=== PATIENT | female | born 1955 | race Caucasian/White ===

== ENCOUNTER → 2019-08-13 13:20 | Outpatient (BNVA) | payer MEDICARE, SELFPAY | PROVIDERS: Family Provider Family Medicine; PCP Family Medicine; Visit Provider Family Medicine | DX: E78.5 Hyperlipidemia, unspecified (principal); N18.3 Chronic kidney disease, stage 3 (moderate); R73.03 Prediabetes | CPT/HCPCS: 36415; 80053; 80061; 85025 ==

== ENCOUNTER → 2019-10-08 10:58 | Outpatient (BNVA) | payer MEDICARE, SELFPAY | PROVIDERS: Family Provider Family Medicine; PCP Family Medicine; Visit Provider Family Medicine | DX: I12.9 Hypertensive chronic kidney disease with stage 1 through stage 4 chronic kidney disease, or unspecified chronic kidney disease (principal); N18.3 Chronic kidney disease, stage 3 (moderate); E78.5 Hyperlipidemia, unspecified; F17.219 Nicotine dependence, cigarettes, with unspecified nicotine-induced disorders | CPT/HCPCS: 80048 ==

== ENCOUNTER 2020-02-23 12:23 | Outpatient (CLI) | payer MEDICARE, SELFPAY ==
--- NOTE | 2020-02-23 12:33 | XR_ITS ---
WS: [id number] Right rib detail, 02/23/2020 Clinical Data: acute rib pain on right Comparison: Bilateral rib detail, 05/31/2015. Findings: No right rib fractures are seen. There is no subcutaneous emphysema or right pneumothorax. There are clips in the right upper quadrant from a cholecystectomy. XR/XR ribs RT 2V* [id number] Impression: Negative right rib detail.
== END 2020-02-23 12:24 | disposition home or self-care (01) ==
LOC: RAD 12:26
PROVIDERS: PCP Family Medicine; Visit Provider Family Medicine
DX: R07.81 Pleurodynia (principal); I10 Essential (primary) hypertension; E78.5 Hyperlipidemia, unspecified; R73.03 Prediabetes
CPT/HCPCS: 71100; 80053; 80061; 82044; 83036; 85025

== ENCOUNTER → 2020-06-29 10:28 | Outpatient (BNVA) | payer MEDICARE, SELFPAY | PROVIDERS: PCP Family Medicine; Visit Provider Family Medicine | DX: I12.9 Hypertensive chronic kidney disease with stage 1 through stage 4 chronic kidney disease, or unspecified chronic kidney disease (principal); F51.04 Psychophysiologic insomnia; N18.31 Chronic kidney disease, stage 3a; F17.219 Nicotine dependence, cigarettes, with unspecified nicotine-induced disorders | CPT/HCPCS: 80048; 81003; 82575; 84156; 87086 ==

== ENCOUNTER 2020-09-19 10:41 | Outpatient (CLI) | payer MEDICARE, SELFPAY ==
--- NOTE | 2020-09-19 10:50 | US_ITS ---
WS: [id number] ULTRASOUND RENAL TECHNIQUE: Ultrasound examination of both kidneys. CLINICAL INFORMATION: RENAL FAILURE COMPARISON: None. FINDINGS: Mild bilateral renal cortical atrophy. RIGHT: Right kidney is normal in appearance. Echogenicity: Normal. Cortical thickness: 0.6 cm; Normal. Hydronephrosis: None. Perinephric fluid: None. Right kidney measures: 10.3 cm x 4.7 cm x 3.6 cm. LEFT: Left kidney is normal in appearance. Echogenicity: Normal. Cortical thickness: 0.8 cm; Normal. Hydronephrosis: None. Perinephric fluid: None. Left kidney measures: 10.2 cm x 6.0 cm x 3.9 cm. Normal visualized aorta. US/US renal BI* [id number] IMPRESSION: 1. Mild bilateral renal cortical atrophy. 2. No hydronephrosis. 3. Urine distended bladder.
== END 2020-09-19 10:42 | disposition home or self-care (01) ==
PROVIDERS: PCP Family Medicine; Visit Provider Registered Nurse
DX: N18.31 Chronic kidney disease, stage 3a (principal)
CPT/HCPCS: 76770; 80069; 82306; 82310; 83970; 85007; 85027

== ENCOUNTER → 2021-02-09 08:34 | Outpatient (BNVA) | payer MEDICARE, SELFPAY | PROVIDERS: PCP Family Medicine; Visit Provider Family Medicine | DX: E78.5 Hyperlipidemia, unspecified (principal); I10 Essential (primary) hypertension; R73.03 Prediabetes; M72.2 Plantar fascial fibromatosis; F32.9 Major depressive disorder, single episode, unspecified; F41.9 Anxiety disorder, unspecified; F17.219 Nicotine dependence, cigarettes, with unspecified nicotine-induced disorders | CPT/HCPCS: 80053; 80061; 82043; 83036 ==

== ENCOUNTER → 2021-09-22 12:15 | Outpatient (BNVA) | payer MEDICARE, SELFPAY | PROVIDERS: PCP Family Medicine; Visit Provider Family Medicine | DX: E78.5 Hyperlipidemia, unspecified (principal); I10 Essential (primary) hypertension; R73.03 Prediabetes; L65.9 Nonscarring hair loss, unspecified | CPT/HCPCS: 80053; 80061; 82043; 83036; 84443; 85025 ==

== ENCOUNTER 2022-01-02 09:35 | Outpatient (CLI) | payer MEDICARE, SELFPAY ==
--- NOTE | 2022-01-02 10:15 | USCV_ITS ---
Lorena Csatro Age: 66 Gender: F : 1955 Exam Date: 01/02/2022 09:55 Ordering Phys: Avis Flores DO Technologist: Cira Isidro Exam Location[place] [facility] [place] Indication: BRUIT Risk Factors: Previous Vascular Surgery: Right Brachial BP: / Left Brachial BP: / Right Left Velocity (cm/s) Spectral Plaque Velocity (cm/s) Spectral Plaque Syst/Diast Broadening Syst/Diast Broadening 86.30/ 24.80 Prox CCA 84.90 / 17.60 100.00/21.40 Mid CCA 94.80 / 16.50 69.20/ 17.10 Distal CCA 93.70 / 18.70 80.80/ 25.10 Prox ICA 59.60 / 12.90 89.80/ 31.30 Mid ICA 64.10 / 24.60 89.10/ 26.30 Distal ICA 71.20 / 26.90 91.60 ECA 80.80 0.90 ICA/CCA 0.75 Antegrade Vertebral Antegrade 28.70/ 8.50 cm/s 65.80/ 16.20 cm/s Tri Subclavian Tri 104.7 126.8 0 0 FINDINGS Comparison: none available. No significant elevation of systolic or diastolic velocities. Waveforms are normal. Mixture of calcified and noncalcified plaque in the bifurcations. Antegrade vertebral arteries. CONCLUSIONS Bilateral ICA stenosis less than 50%. Mild atherosclerosis carotid bifurcations. Dr. Lea Wade DO (Electronically Signed) Final Date: 02 Jan 2022 10:29 S
== END 2022-01-02 09:36 | disposition home or self-care (01) ==
PROVIDERS: PCP Family Medicine; Visit Provider Family Medicine
DX: I65.23 Occlusion and stenosis of bilateral carotid arteries (principal); R09.89 Other specified symptoms and signs involving the circulatory and respiratory systems
CPT/HCPCS: 93880

== ENCOUNTER → 2022-03-23 11:53 | Outpatient (BNVA) | payer MEDICARE, SELFPAY | PROVIDERS: PCP Family Medicine; Visit Provider Family Medicine | DX: E78.5 Hyperlipidemia, unspecified (principal); I10 Essential (primary) hypertension; R73.03 Prediabetes; L65.9 Nonscarring hair loss, unspecified | CPT/HCPCS: 80053; 80061; 83036 ==

== ENCOUNTER 2022-03-30 08:39 | Outpatient (CLI) | payer MEDICARE, SELFPAY ==
--- NOTE | 2022-03-30 | ECG_ITS ---
[facility] Test Date: 2022-03-30 Pat Name: Lorena Castro Department: Room: Gender: Female Psychologist Research Assistant: : 1955 Requested By: Avis Flores Order Number: [id number] Chandrakant MD: Jordan Morales M.D. Interpretive Statements NAME OF STUDY: LEXISCAN SESTAMIBI STRESS TEST INDICATION: [Shortness of Breath] Procedure: At the baseline, the blood pressure was 103/65 mmHg with a heart rate of 82 bpm. The electrocardiogram showed normal sinus rhythm, left axis deviation. The Lexiscan was infused over a period of 20 seconds. A total of 0.4 mg of Lexiscan was infused. The stress phase was continued for a total of 5 minutes. Heart rate was at the end of stress phase was 97 bpm and a blood pressure of 122/96 mmHg. The EKG at the peak infusion revealed since normal sinus rhythm with no significant ST-T wave changes. Sestamibi was injected 20 seconds after the Lexiscan infusion. Blood pressure at the end of recovery phase was 123/92 mmHg with a heart rate of 95 bpm. Conclusion: 1. Normal EKG response to Lexiscan infusion 2. No Lexiscan induced chest pain or cardiac arrhythmia. 3. Normal blood pressure and heart rate response. 4. Sestamibi/sestamibi perfusion scan pending; see separate report. Electronically Signed On 04-02-2022 0:26:07 CDT by Jordan Morales M.D. [id number]
[2022-03-30 09:02] VITALS: BMI 31.8
--- NOTE | 2022-03-30 09:06 | NMCV_ITS ---
NM katie perf SPECT r/s* [id number] Lorena Castro Age: 66 Gender: F : 1955 Exam Date: 03/30/2022 10:28 Ordering Phys: Avis Flores DO Technologist: ELVIRA Lopez Exam Location: [facility] [address] Indications: SHORTNESS OF BREATH STRESS TEST Please see separate stress test report in [facility] for full findings IMAGE PROTOCOL Rest/Stress 1 Lexiscan Day Radiopharmaceutical Dose (mCi) Administration Site Administered by Rest: Tc-99m 10.6 IV ELVIRA Lopez Sestamibi Stress:Tc-99m 32.4 IV ELVIRA Celaya Sestamibi Rest: 30-Mar-2022 60 Discovery 630 Stress: 30-Mar-2022 30 Discovery 630 0.4mg Lexiscan. Images obtained in supine and prone position. SPECT RESULTS Technical Quality: Excellent Raw Data Analysis: Normal Image Corrections: No attenuation or motion correction applied Summed Stress Score: 1 Summed Rest Score: 14 Summed Difference Score: 0 PERFUSION FINDINGS There is a small sized, fixed perfusion defect in the apical septal wall. This is consistent with small sized prior infarct in this area. FUNCTIONAL RESULTS (calculated via Gated SPECT) Stress Image LV EF (%): 82 Stress EDV (mL):51 TID: 0.8 Stress ESV (mL):9 FUNCTIONAL FINDINGS: LV systolic function is normal IMPRESSIONS 1. 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 No evidence of ischemia is seen 2. LV systolic function is normal Jordan Morales MD (Electronically Signed) Final Date: 02 April 2022 11:53 S
[2022-03-30] MEDS: regadenoson 0.4 Mg/5 ml Syringe IVP (11:03)
[2022-03-30 12:01] VITALS: BP 122/79; PULSE 82
== END 2022-03-30 08:40 | disposition home or self-care (01) ==
LOC: CDL 08:42
PROVIDERS: PCP Family Medicine; Visit Provider Family Medicine
DX: R06.09 Other forms of dyspnea (principal); R06.02 Shortness of breath
CPT/HCPCS: 78452; 93017; A9500; J2785

== ENCOUNTER 2022-04-13 19:55 | Emergency (ER) | payer MEDICARE, SELFPAY ==
[2022-04-13 19:58] VITALS: BP 133/75; PULSE 109; RESP 16; TEMP 36.9; O2SAT 93
--- NOTE | 2022-04-13 20:18 | CTR_ITS ---
PROCEDURE INFORMATION: Exam: CT Head Without Contrast Exam date and time: 04/13/2022 8:30 PM Age: 66 years old Clinical indication: Injury or trauma; Blunt trauma (contusions or hematomas); Patient HX: Fall with lac to lateral side of left orbit; Additional info: Head injury p fall TECHNIQUE: Imaging protocol: Computed tomography of the head without contrast. Radiation optimization: All CT scans at this facility use at least one of these dose optimization techniques: automated exposure control; mA and/or kV adjustment per patient size (includes targeted exams where dose is matched to clinical indication); or iterative reconstruction. COMPARISON: CT head wo con* [id number] 01/09/2018 6:52 PM RADIATION DOSE METRICS: Total DLP (mGy-cm): 1006.68 FINDINGS: Brain: Normal. No hemorrhage. Unremarkable white matter. No mass effect. Cerebral ventricles: No ventriculomegaly. Paranasal sinuses: Visualized sinuses are unremarkable. No fluid levels. Mastoid air cells: Visualized mastoid air cells are well aerated. Bones/joints: Unremarkable. No acute fracture. Soft tissues: Unremarkable. CT/CT head wo con* [id number] IMPRESSION: No acute intracranial abnormality.
--- NOTE | 2022-04-14 02:03 | W.ED.HEATRA ---
HPI - Head Injury General: Chief complaint: Head Injury Stated complaint: Injury Left Side by Eye Time Seen by Provider: 04/13/22 20:14 Source: patient and family History of Present Illness: 66-year-old intoxicated female presenting after a fall and head injury. She notes that she stumbled, injuring her left temporal area. This was around 6 PM. Complaint: head injury Onset (ago): hour(s) Mechanism of Injury: fall Place: home Loss of Consciousness: no Location of injury: temporal Severity: moderate Quality: throbbing Radiation: none Other Injuries: none Context: other Associated symptoms: Reports confusion; Deny nausea, neck pain, numbness, tingling, vertigo, visual changes, vomiting or weakness Review of Systems General: Reports: ROS unobtainable due to medical condition Const: Denies: fever(s) Eyes: Denies: change in vision ENMT: Denies: throat pain Card: Denies: chest pain GI: Denies: abdominal pain, nausea or vomiting : Denies: flank pain Musc: Denies: neck pain or back pain Neuro: Reports: headache(s) and confusion; Denies: vertigo PFSH ED PFSH: Medical History Anxiety and depression Chronic insomnia Dyslipidemia Essential (primary) hypertension Fibromyalgia Old [place] (myocardial infarction) Surgical History H/O hernia repair H/O: hysterectomy S/P cholecystectomy Family History Other CAD (coronary artery disease) Cancer Diabetes Social History Smoking and tobacco status: current every day smoker cigarettes Packs smoked per day: 0.25 Alcohol intake: never Physical Exam Const: COMMON NORMALS: no acute distress EXAM LIMITATIONS: altered mental status GENERAL APPEARANCE: lethargic ORIENTATION/CONSCIOUSNESS: Yes lethargic HENMT: COMMON NORMALS: normocephalic and TM's normal bilaterally HEAD & SCALP: normocephalic, laceration (2 inch left taoist.) and scalp tenderness TYMPANIC MEMBRANE: TM's normal bilaterally Eye: COMMON NORMALS: Equal, round and reactive pupils present and EOMs intact bilaterally PUPIL: Yes Equal, round and reactive pupils present Neck/C-Spine: COMMON NORMALS: full ROM and supple GENERAL: Yes tracheal deviation Resp: COMMON NORMALS: normal respiratory effort and No use of accessory muscles Cardio: COMMON NORMALS: regular rate and regular rhythm RATE: regular rate RHYTHM: regular rhythm GI: COMMON NORMALS: Normal to inspection, nondistended, normoactive bowel sounds present INSPECTION: Yes Abdominal wall edema Extremity: COMMON NORMALS: normal to inspection Neuro: ZULEYMA COMA SCALE: document GCS findings Harmony coma scale eye opening: Spontaneous Zuleyma coma scale verbal response: Confused Zuleyma coma scale motor response: Obey commands Harmony coma scale total score: 14 SENSORIUM/ORIENTATION: Yes lethargic CRANIAL NERVES: Yes CN normal except as noted SPEECH: speech normal Skin: OTHER: 2 inch laceration left taoist. Bleeding controlled Procedures Laceration Laceration 1: Site: scalp Side (If applicable): left Size (cm): 5 Description: linear Depth: simple, single layer Local Anesthetic: lidocaine 1% and with epi Amount of anesthesia used (mL): 6 Pre-repair: wound explored, irrigated extensively and deep structures intact Skin layer closed with: nylon Size (cm): 6-0 Number of sutures: 5 Technique: simple, interrupted Course Vital Signs: Vital signs: Vital Signs Temperature 98.4 F 04/13/22 19:58 Pulse Rate 109 H 04/13/22 19:58 Respiratory Rate 16 04/13/22 19:58 Blood Pressure 133/75 04/13/22 19:58 Pulse Oximetry 93 04/13/22 19:58 Oxygen Delivery Me thod 04/13/22 19:58 MDM - Head Injury Medcial Decision Making Head CT negative. No other injury apparent. Laceration repaired she is intoxicated, but otherwise medically stable. Lab Data Radiology Impressions Head CT 04/13/22 20:18 IMPRESSION: No acute intracranial abnormality. Discharge Plan Discharge Patient Disposition: Home Clinical Impression: Laceration of scalp, Concussion, Alcohol intoxication Condition: Stable Prescriptions: No Action amitriptyline 25 mg tablet See Rx Instructions .ROUTE .COMPLEX Qty: 180 1RF Dose Instruction: Take 2 tablets by mouth once daily Rx Instructions: Take 2 tablets by mouth once daily metoprolol tartrate 25 mg tablet 25 mg PO BID Qty: 180 1RF amlodipine [Norvasc] 5 mg tablet 5 mg PO BID Qty: 180 1RF albuterol sulfate [Ventolin HFA] 90 mcg/actuation HFA aerosol inhaler 2 puff INHALATION Q6H PRN Combivent Respimat 20-100 mcg/actuation mist 1 puff INHALATION Q6H cholecalciferol (vitamin D3) 1,000 unit capsule 1,000 unit PO ONCE duloxetine 30 mg capsule,delayed release(DR/EC) 30 mg PO DAILY Qty: 90 1RF cetirizine [Zyrtec] 10 mg tablet 10 mg PO ONCE Qty: 90 2RF montelukast 10 mg tablet 10 mg PO DAILY Qty: 90 1RF tizanidine 4 mg capsule See Rx Instructions PO TID PRN (Reason: fibromyalgia) Qty: 270 4RF Rx Instructions: ONE TO TWO PO three times daily PRN; rosuvastatin 10 mg tablet See Rx Instructions .ROUTE .COMPLEX Qty: 90 0RF Dose Instruction: TAKE 1 TABLET BY MOUTH AT BEDTIME Rx Instructions: TAKE 1 TABLET BY MOUTH AT BEDTIME alprazolam [Xanax] 1 mg tablet 1 mg PO BID Qty: 45 2RF Rx Instructions: must last 30 days clopidogrel 75 mg tablet See Rx Instructions .ROUTE .COMPLEX Qty: 90 0RF Dose Instruction: Take 1 tablet by mouth once daily Rx Instructions: Take 1 tablet by mouth once daily lisinopril 20 mg tablet See Rx Instructions .ROUTE .COMPLEX Qty: 90 0RF Dose Instruction: Take 1 tablet by mouth once daily Rx Instructions: Take 1 tablet by mouth once daily rosuvastatin [Crestor] 10 mg tablet 10 mg PO .hs Qty: 90 0RF Discharge Orders: Discharge ED (Routine); Ordered 04/13/22 Ordered By: Gian Tristan Referrals: Avis Flores DO [Primary Care Provider] - 4-7 days Patient Instructions: Concussion (ED), Alcohol Intoxication (ED), Head Laceration (ED) Activity Restrictions/Additional Instructions: Sutures out in 5 to 7 days. You may wash with soap and running water in 24 hours. Do not submerge. Return for worsening mental status, vomiting, weakness, vision changes, any other concerning symptoms. Return also for increased swelling drainage or redness to the laceration area. Coding Level of Care Code ED Centrifug[employer] Casting Machine Tender for Chg Fwd Exam Expanded Problem Focused
== END 2022-04-13 21:39 | disposition home or self-care (01) ==
PROVIDERS: Emergency Provider Emergency Medicine; PCP Family Medicine
DX: S06.0X9A Concussion with loss of consciousness of unspecified duration, initial encounter (principal); S01.01XA Laceration without foreign body of scalp, initial encounter; F10.129 Alcohol abuse with intoxication, unspecified; Y90.9 Presence of alcohol in blood, level not specified; Z79.02 Long term (current) use of antithrombotics/antiplatelets; E78.5 Hyperlipidemia, unspecified; I10 Essential (primary) hypertension; I25.2 Old myocardial infarction; F17.210 Nicotine dependence, cigarettes, uncomplicated; W01.0XXA Fall on same level from slipping, tripping and stumbling without subsequent striking against object, initial encounter
CPT/HCPCS: 70450; 99284

== ENCOUNTER → 2022-10-01 14:47 | Outpatient (BNVA) | payer MEDICARE, SELFPAY | PROVIDERS: PCP Family Medicine; Visit Provider Family Medicine | DX: E78.5 Hyperlipidemia, unspecified (principal); I10 Essential (primary) hypertension; N18.31 Chronic kidney disease, stage 3a; R73.03 Prediabetes | CPT/HCPCS: 80053; 83036 ==

== ENCOUNTER 2022-10-11 13:37 | Outpatient (CLI) | payer MEDICARE, SELFPAY ==
--- NOTE | 2022-10-11 13:54 | MM_ITS ---
WS: [id number] BILATERAL 3D TOMOSYNTHESIS DIGITAL SCREENING MAMMOGRAPHY WITH CAD CLINICAL INFORMATION: screening mammogram HISTORY: Screening mammogram. No current complaints. COMPARISON: 2019 TECHNIQUE: Bilateral CC and MLO views. FINDINGS: The breasts are composed of heterogeneous fibroglandular density tissue, which can limit the detectio n of small underlying mass lesions. No suspicious mass, asymmetry, calcifications, or architectural d istortion. No evidence of malignancy. Punctate and lucent centered calcifications. MM/[place] [id number] IMPRESSION: BI-RADS: 2-Benign FOLLOW UP: 1 Year Follow-up Recommend return to annual screening mammography.
== END 2022-10-11 13:38 | disposition home or self-care (01) ==
LOC: RAD 13:40
PROVIDERS: PCP Family Medicine; Visit Provider Family Medicine
DX: Z12.31 Encounter for screening mammogram for malignant neoplasm of breast (principal)
CPT/HCPCS: 77063; 77067

== ENCOUNTER → 2023-04-01 13:50 | Outpatient (BNVA) | payer MEDICARE, SELFPAY | PROVIDERS: PCP Family Medicine; Visit Provider Family Medicine | DX: E78.5 Hyperlipidemia, unspecified (principal); R73.03 Prediabetes; G25.0 Essential tremor | CPT/HCPCS: 80053; 80061; 83036; 85025 ==

== ENCOUNTER 2023-05-14 12:36 | Outpatient (CLI) | payer MEDICARE, SELFPAY ==
--- NOTE | 2023-05-14 12:44 | XR_ITS ---
WS: [id number] EXAMINATION: XR shoulder LT min 2V* [id number] REASON FOR EXAM: left shoulder pain ORDER DATE: 05/14/2023 12:44 PM TECHNIQUE: 3 views of the left shoulder were obtained. X-RAY FINDINGS: No fractures or dislocations. Normal motion of the shoulder with internal/external rotation. Minimal degenerative changes in the AC joint otherwise appears unremarkable. Limited visualization of the adjacent hemithorax is unremarkable. IMPRESSION: No fractures or dislocations of the left shoulder.
== END 2023-05-14 12:37 | disposition home or self-care (01) ==
PROVIDERS: PCP Family Medicine; Visit Provider Family Medicine
DX: M25.512 Pain in left shoulder (principal)
CPT/HCPCS: 73030

== ENCOUNTER → 2023-06-18 14:10 | Outpatient (BNVA) | payer MEDICARE, SELFPAY | PROVIDERS: Visit Provider Family Medicine | DX: Z11.59 Encounter for screening for other viral diseases (principal) | CPT/HCPCS: 86803 ==

== ENCOUNTER 2023-06-21 10:14 | Outpatient (RCR) | payer MEDICARE, SELFPAY | END 2023-07-11 23:59 | disposition home or self-care (01) | LOC: SPT 10:14 | PROVIDERS: PCP Family Medicine; Visit Provider Family Medicine | DX: M25.512 Pain in left shoulder (principal) | CPT/HCPCS: 90662; 97110; 97161 ==

== ENCOUNTER → 2023-06-24 13:15 | Outpatient (BNVA) | payer MEDICARE, SELFPAY | PROVIDERS: PCP Family Medicine; Referring Provider Family Medicine; Visit Provider Surgery | DX: Z12.11 Encounter for screening for malignant neoplasm of colon (principal) | CPT/HCPCS: 99024; 99203 ==

== ENCOUNTER 2023-06-26 13:19 | Outpatient (CLI) | payer MEDICARE, SELFPAY ==
--- NOTE | 2023-06-26 14:00 | XR_ITS ---
WS: [id number] SCREENING DEXA SCAN [employer] CLINICAL INFORMATION: postmenopausal COMPARISON: None. FINDINGS: The L1-L4 bone mineral density measures 1.131 g/cm2. This corresponds to a T score score of -0.4 and Z score of 0.7. Left femoral neck bone mineral density measures 1.065 g/cm2. This corresponds to a T score of 0.5 and Z score of 1.4. Right femoral neck bone mineral density measures 1.030 g/cm2. This corresponds to a T score 0.2of and Z score of 1.1. Mean femoral neck bone mineral density measures 1.048 g/cm2. This corresponds to a T score of 0.3 and Z score of 1.3. IMPRESSION: Normal bone mineralization. Patient's FRAX calculated 10 year probability for major osteoporotic fracture is 12.9% and osteoporot ic hip fracture is 1.7%.
--- NOTE | 2023-06-26 14:45 | CT_ITS ---
WS: [id number] LDCT LUNG CANCER SCREENING HISTORY: screening TECHNIQUE: Axial imaging performed from the apices to 1 cm below the costophrenic angles. Coronal and sagittal reformats are submitted with axial MIP series. All CT scans at [facility] use at least one of these dose optimization techniques: automated exposure control; mA and/or kV adjustment per patient size (includes targeted exams where dose is matched to clinical indication); or iterativ e reconstruction. DLP: 68.42 mGy.cm DIvol: Mean CTDIvol: 1.50 (mGy) COMPARISON: None available. Diagnostic quality: Satisfactory Lungs: No pulmonary mass or nodule. No endobronchial lesions. Heart: Normal size heart with no pericardial effusion.. Other findings: No adenopathy. Mild atherosclerosis aorta. Normal sized pulmonary artery. Mild olivera ry artery atherosclerosis. No adrenal mass. Prior cholecystectomy. IMPRESSION: CT/CT lung screening [id number] LUNG-RADS: 1-Negative FOLLOW UP: 12 Month: Continue annual screening with LDCT OTHER FINDINGS (S MODIFIER): None.
== END 2023-06-26 13:20 | disposition home or self-care (01) ==
LOC: RAD 13:19
PROVIDERS: PCP Family Medicine; Visit Provider Family Medicine
DX: Z13.820 Encounter for screening for osteoporosis (principal); Z12.2 Encounter for screening for malignant neoplasm of respiratory organs; F17.210 Nicotine dependence, cigarettes, uncomplicated; Z78.0 Asymptomatic menopausal state
CPT/HCPCS: 71271; 77080

== ENCOUNTER 2023-07-12 06:00 | Outpatient (RCR) | payer MEDICARE, SELFPAY | END 2023-07-18 23:59 | disposition home or self-care (01) | LOC: SPT 06:00 | PROVIDERS: PCP Family Medicine; Visit Provider Family Medicine | DX: M25.512 Pain in left shoulder (principal) | CPT/HCPCS: 97110 ==

== ENCOUNTER 2023-08-30 07:16 | Day surgery (SDC) | payer MEDICARE, SELFPAY ==
[2023-08-30 07:31] VITALS: PULSE 113; RESP 18; TEMP 36.3
--- NOTE | 2023-08-30 07:41 | W.PM.OPSFHP ---
Same Day Surgery H&P Indication for Procedure/HPI DATE OF PROCEDURE: August 30, 2023 CHIEF COMPLAINT/INDICATIONFOR SURGICAL PROCEDURE: need for screening colonoscopy PREOP DIAGNOSIS: need for screening colonoscopy PLANNED PROCEDURE: Operation Date: 08/30/23 08:20 Proposed Procedures p 73309 colon G0121 screen colon A risk Z12.11(Not Applicable) - Rubens Marmolejo MD Medications/Allergies* Home Medications Medication Instructions Recorded Confirmed Type albuterol sulfate 90 mcg/actuation 2 puff inhalation Q6H PRN 08/06/19 08/30/23 History aerosol inhaler (Ventolin HFA) Shortness Of Breath cholecalciferol (vitamin D3) 25 1,000 unit PO DAILY 08/06/19 08/30/23 History mcg (1,000 unit) capsule ipratropium 20 mcg-albuterol 100 1 puff inhalation Q6H 08/06/19 08/30/23 History mcg/actuation mist for inhalation (Combivent Respimat) amitriptyline 25 mg tablet 50 mg PO DAILY 08/27/23 08/30/23 History ascorbic acid (vitamin C) 500 mg 500 mg PO DAILY 08/27/23 08/30/23 History tablet (Vitamin C) cetirizine 10 mg tablet 10 mg PO DAILY 08/27/23 08/30/23 History clopidogrel 75 mg tablet 75 mg PO DAILY 08/27/23 08/30/23 History duloxetine 30 mg capsule,delayed 30 mg PO DAILY 08/27/23 08/30/23 History release lisinopril 20 mg tablet 20 mg PO DAILY 08/27/23 08/30/23 History montelukast 10 mg tablet 10 mg PO DAILY 08/27/23 08/30/23 History tizanidine 4 mg capsule See Rx Instructions .Route 08/27/23 08/30/23 History .COMPLEX PRN fibromyalgia Allergies/Adverse Reactions Allergy/AdvReac Type Severity Reaction Status Date / Time codeine Allergy Unknown Verified 08/30/23 07:28 gabapentin Allergy Unknown Verified 08/30/23 07:28 sulfamethoxazole Allergy Unknown Verified 08/30/23 07:28 [From Bactrim] trimethoprim [From Bactrim] Allergy Unknown Verified 08/30/23 07:28 Pertinent History/Comorbid Conditions* Medical History (Updated 06/18/23 @ 14:02 by Avis Flores DO) Essential (primary) hypertension Anxiety and depression Chronic insomnia Dyslipidemia Fibromyalgia Old [place] (myocardial infarction) Surgical History (Updated 08/13/19 @ 13:42 by Avis Flores DO) H/O hernia repair H/O: hysterectomy S/P cholecystectomy Family History (Updated 10/08/19 @ 10:34 by Allison Arteaga LPN) Diabetes CAD (coronary artery disease) Cancer Social History Smoking and tobacco/nicotine status: current every day tobacco/nicotine user cigarettes Packs smoked per day: 0.25 Alcohol intake: never Substance/Drug Use: never Pertinent Exam Findings alert, oriented x 3 and clear to auscultation bilaterally Recommendations Surgery/Procedure today Coding Level of Care Code Acute Code for Chg Fwnoah
[2023-08-30] MEDS: sodium chloride 0.9% 1,000 ML 30 ML IV (07:46)
--- NOTE | 2023-08-30 07:56 | ANES.PREANE2 ---
Pre-Anesthetic Assessment Height/Weight: Height 1.6 m Temp Pulse Resp O2 Del Method 97.3 F L 113 H 18 Room Air 08/30/23 07:31 08/30/23 07:31 08/30/23 07:31 08/30/23 07:31 Preop Diagnosis: need for screening colonoscopy Operation Date: 08/30/23 08:20 Proposed Procedures p 89793 colon G0121 screen colon A risk Z12.11(Not Applicable) - Rubens Marmolejo MD Familial anesthetic complications: None Was Beta Raj taken within 24 hours: N/A Was Clonidine taken within 24 hours: N/A Last intake: Intake Last Liquid Date 08/29/23 Last Liquid Time 23:30 Last Solid Date 08/29/23 Last Solid Time 00:00 Social No alcohol and No tobacco Exam alert, oriented x 3, clear to auscultation bilaterally and regular rate & rhythm Airway Mallampati: Class II Dentition: chipped Pulmonary Chronic Obstructive Pulmonary Disease CV/HEM Coronary Artery Disease (stent > 1 year ago on plavix, holding), Hypertension and Myocardial Infarction Chronic Renal Insufficiency Hepatic Hepatitis (C) GI Gastroesophageal Reflux Disease Metabolic Diabetes Mellitus Neuropsych tremor Anesthetic Plan ASA status: 3 Anesthesia: MAC Risk of > 500 ml blood loss (7ml/kg in children): No Medications/Allergies Home Medications Medication Instructions Recorded Confirmed Last Taken Type albuterol sulfate 90 mcg/actuation 2 puff inhalation Q6H PRN 08/06/19 08/30/23 08/26/23 History aerosol inhaler (Ventolin HFA) Shortness Of Breath cholecalciferol (vitamin D3) 25 1,000 unit PO DAILY 08/06/19 08/30/23 08/23/23 History mcg (1,000 unit) capsule ipratropium 20 mcg-albuterol 100 1 puff inhalation Q6H 08/06/19 08/30/23 Unknown History mcg/actuation mist for inhalation (Combivent Respimat) rosuvastatin 10 mg tablet (Crestor) 10 mg PO .hs #90 tabs 04/01/23 08/30/23 08/29/23 Rx alprazolam 1 mg tablet (Xanax) 1 mg PO BID #45 tabs 05/22/23 08/30/23 08/29/23 Rx metoprolol tartrate 25 mg tablet 25 mg PO BID #180 tabs 06/18/23 08/30/23 08/29/23 Rx amitriptyline 25 mg tablet 50 mg PO DAILY 08/27/23 08/30/23 08/29/23 History amlodipine 5 mg tablet (Norvasc) 5 mg PO BID #180 tabs 08/27/23 08/30/23 08/29/23 Rx ascorbic acid (vitamin C) 500 mg 500 mg PO DAILY 08/27/23 08/30/23 08/29/23 History tablet (Vitamin C) cetirizine 10 mg tablet 10 mg PO DAILY 08/27/23 08/30/23 08/29/23 History clopidogrel 75 mg tablet 75 mg PO DAILY 08/27/23 08/30/23 08/27/23 History duloxetine 30 mg capsule,delayed 30 mg PO DAILY 08/27/23 08/30/23 08/29/23 History release lisinopril 20 mg tablet 20 mg PO DAILY 08/27/23 08/30/23 08/29/23 History montelukast 10 mg tablet 10 mg PO DAILY 08/27/23 08/30/23 08/29/23 History tizanidine 4 mg capsule See Rx Instructions .Route 08/27/23 08/30/23 08/26/23 History .COMPLEX PRN fibromyalgia Allergies Allergy/AdvReac Type Severity Reaction Status Date / Time codeine Allergy Unknown Verified 08/30/23 07:28 gabapentin Allergy Unknown Verified 08/30/23 07:28 sulfamethoxazole Allergy Unknown Verified 08/30/23 07:28 [From Bactrim] trimethoprim [From Bactrim] Allergy Unknown Verified 08/30/23 07:28 Current Medications Generic Name Dose Route Start Last Admin Trade Name Freq PRN Reason Stop Dose Admin Sodium Chloride 1,000 mls @ 30 mls/hr 08/30/23 07:30 08/30/23 07:46 Sodium Chloride 0.9% IV 30 mls/hr .Q24H HARPAL Administration PFSH Anesthesia Medical History Essential (primary) hypertension Anxiety and depression Chronic insomnia Dyslipidemia Fibromyalgia [place] (myocardial infarction) Surgical History (Updated 06/24/23 @ 13:30 by ROX Kelly) H/O hernia repair H/O: hysterectomy S/P cholecystectomy Family History Other CAD (coronary artery disease) Cancer Diabetes Social History Smoking and tobacco/nicotine status: current every day tobacco/nicotine user cigarettes Packs smoked per day: 0.25 Alcohol intake: never Substance/Drug Use: never Data Anesthesia Cardiac Studies: Sestamibi Stress Test (Cardiology) 03/30/22
[2023-08-30 09:18] VITALS: BP 107/57; PULSE 78; RESP 18; O2SAT 98
[2023-08-30 09:28] VITALS: BP 108/50; PULSE 75; RESP 18; O2SAT 95
[2023-08-30 09:38] VITALS: BP 142/96; PULSE 76; RESP 18; O2SAT 94
--- NOTE | 2023-08-30 09:45 | ANE.PACU2 ---
Inpatient post-anesthesia follow up: Airway intact: Yes Vital signs: Temperature 97.3 F Pulse Rate 76 Respiratory Rate 18 Blood Pressure 142/96 Pulse Oximetry 94 Oxygen Delivery Me thod Room Air Oxygen Flow Rate Fraction of Inspir ed Oxygen Hydration adequate: Yes Nausea and vomiting: No Pain level: 1 Mental status: Baseline
== END 2023-08-30 09:45 | disposition home or self-care (01) ==
PROVIDERS: PCP Family Medicine; Visit Provider Surgery
PROC: 0DJD8ZZ Inspection of Lower Intestinal Tract, Via Natural or Artificial Opening Endoscopic (ICD-10-PCS; CPT 45378; principal; 2023-08-30 08:20)
DX: Z12.11 Encounter for screening for malignant neoplasm of colon (principal); D12.2 Benign neoplasm of ascending colon; D12.8 Benign neoplasm of rectum; I10 Essential (primary) hypertension; E78.5 Hyperlipidemia, unspecified; M79.7 Fibromyalgia; I25.2 Old myocardial infarction; F17.210 Nicotine dependence, cigarettes, uncomplicated; I25.10 Atherosclerotic heart disease of native coronary artery without angina pectoris; Z95.5 Presence of coronary angioplasty implant and graft; Z79.02 Long term (current) use of antithrombotics/antiplatelets; Z86.19 Personal history of other infectious and parasitic diseases; K21.9 Gastro-esophageal reflux disease without esophagitis; E11.9 Type 2 diabetes mellitus without complications
CPT/HCPCS: 45385; 88305; J2704; J7030

== ENCOUNTER → 2023-09-18 10:47 | Outpatient (BNVA) | payer MEDICARE, SELFPAY | PROVIDERS: PCP Family Medicine; Visit Provider Surgery | DX: Z98.890 Other specified postprocedural states (principal); Z86.010 Personal history of colon polyps | CPT/HCPCS: 99213 ==

== ENCOUNTER → 2023-10-24 11:04 | Outpatient (BNVA) | payer MEDICARE, SELFPAY | PROVIDERS: PCP Family Medicine; Visit Provider Family Medicine | DX: N18.31 Chronic kidney disease, stage 3a (principal) | CPT/HCPCS: 80048 ==

== ENCOUNTER → 2024-10-08 13:13 | Outpatient (BNVA) | payer MEDICARE, SELFPAY | PROVIDERS: PCP Family Medicine; Visit Provider Family Medicine | DX: R73.03 Prediabetes (principal); E78.5 Hyperlipidemia, unspecified | CPT/HCPCS: 80053; 80061; 83036 ==

== ENCOUNTER 2025-02-26 14:35 | Outpatient (CLI) | payer MEDICARE, SELFPAY ==
--- NOTE | 2025-02-26 14:45 | XR_ITS ---
WS: [id number] XR lumbar spine 2-3V* [id number] REASON FOR EXAM: chronic lower back pain FINDINGS: Mild rotatory levoscoliosis. Moderate endplate compression deformity of L1 unknown chronicity. No focal vertebral body lesion. Mild narrowing of the disc spaces L1-L4 with mild endplate sclerosis and osteophytosis. Significant narrowing of the L5-S1 disc space with moderate endplate sclerosis and mild osteophytosis. No spondylolysis and no significant spondylolisthesis. Moderate degenerative change in the facet joints L3-S1. XR/XR lumbar spine 2-3V* [id number] IMPRESSION: L1 compression deformity as above. Degenerative spondylosis as above.
== END 2025-02-26 14:36 | disposition home or self-care (01) ==
LOC: RAD 14:36
PROVIDERS: PCP Family Medicine; Visit Provider Family Medicine
DX: M47.816 Spondylosis without myelopathy or radiculopathy, lumbar region (principal); M25.78 Osteophyte, vertebrae; M43.8X6 Other specified deforming dorsopathies, lumbar region
CPT/HCPCS: 72100

== ENCOUNTER 2025-03-10 08:23 | Outpatient (RCR) | payer MEDICARE, SELFPAY | END 2025-03-11 23:59 | disposition home or self-care (01) | LOC: SPT 08:23 | PROVIDERS: PCP Family Medicine; Visit Provider Family Medicine | DX: M54.50 Low back pain, unspecified (principal); G89.29 Other chronic pain | CPT/HCPCS: 97161 ==

== ENCOUNTER 2025-03-12 05:00 | Outpatient (RCR) | payer MEDICARE, SELFPAY | END 2025-03-25 10:50 | disposition home or self-care (01) | LOC: SPT 05:00 | PROVIDERS: PCP Family Medicine; Visit Provider Family Medicine | DX: M54.50 Low back pain, unspecified (principal); G89.29 Other chronic pain | CPT/HCPCS: 97110 ==

== ENCOUNTER 2025-04-19 08:33 | Outpatient (CLI) | payer MEDICARE, SELFPAY ==
--- NOTE | 2025-04-19 09:00 | MM_ITS ---
WS: [id number] BILATERAL SCREENING DIGITAL TOMOSYNTHESIS MAMMOGRAM WITH CAD HISTORY: screening COMPARISON: 10/11/2022, 06/10/2019 Bilateral CC and MLO views with tomosynthesis and synthetic mammography submitted. Computer aided detection analyzed. Breast composition: The breasts are heterogeneously dense, which may obscure small masses. No suspicious masses, microcalcifications or architectural distortion. Asymmetric soft tissue. Benign calcifications in each breast. No interval change. MM/MM scr tomosynthesis [id number] IMPRESSION: BI-RADS: 2 - Benign FOLLOW UP: 1 Year Follow-up
== END 2025-04-19 08:34 | disposition home or self-care (01) ==
LOC: RAD 08:34
PROVIDERS: PCP Family Medicine; Visit Provider Family Medicine
DX: Z12.31 Encounter for screening mammogram for malignant neoplasm of breast (principal); R92.333 Mammographic heterogeneous density, bilateral breasts
CPT/HCPCS: 77063; 77067

== ENCOUNTER 2025-04-27 07:28 | Outpatient (CLI) | payer MEDICARE, SELFPAY ==
--- NOTE | 2025-04-27 07:00 | CT_ITS ---
WS: [id number] LDCT LUNG CANCER SCREENING HISTORY: screening TECHNIQUE: Axial imaging performed from the apices to 1 cm below the costophrenic angles. Coronal and sagittal reformats are submitted with axial MIP series. All CT scans at [facility] use at least one of these dose optimization techniques: automated exposure control; mA and/or kV adjustment per patient size (includes targeted exams where dose is matched to clinical indication); or iterative reconstruction. DLP: 68.53 mGy.cm DIvol: Mean CTDIvol: 1.40 (mGy) COMPARISON: 06/26/2023 Diagnostic quality: Satisfactory Lungs: Mild pulmonary hyperinflation. Mild biapical pleural thickening. Small bilateral pleural tags. 2 mm nodule is partially calcified LEFT upper lobe, image 50 series 5. Benign granuloma RIGHT upper lobe. 3 mm pleural nodule associated with the fissure LEFT lung. No mass or endobronchial lesions. Heart: Normal size heart with no pericardial effusion.. Moderate scattered coronary artery calcifications. Other findings: No pericardial or pleural effusions. No adenopathy. Pulmonary arteries mildly dilated. No adrenal mass. Prior cholecystectomy. Splenic granulomata. CT/CT lung screening [id number] IMPRESSION: LUNG-RADS: 2-Benign Appearance or Behavior FOLLOW UP: 12 Month: Continue annual screening with LDCT OTHER FINDINGS (S MODIFIER): None.
== END 2025-04-27 07:29 | disposition home or self-care (01) ==
LOC: RAD 07:30
PROVIDERS: PCP Family Medicine; Visit Provider Family Medicine
DX: F17.219 Nicotine dependence, cigarettes, with unspecified nicotine-induced disorders (principal); Z12.2 Encounter for screening for malignant neoplasm of respiratory organs; R91.8 Other nonspecific abnormal finding of lung field; I25.10 Atherosclerotic heart disease of native coronary artery without angina pectoris
CPT/HCPCS: 71271